=== PATIENT | male | born 1975 | race Caucasian/White ===

== ENCOUNTER 2020-01-21 11:56 | Emergency (ER) | payer MEDICAID ==
[~2020-01-21] VITALS: Ht 154.9 cm; Wt 62.1 kg
[2020-01-21 12:04] VITALS: Ht 154.9 cm; Wt 62.1 kg
[2020-01-21 13:33] LABS: BASOPHIL % 0.7 % (0-2)
[2020-01-21 13:34] LABS: CALCIUM 8.6 mg/dL (8.5-10.1); CARBON DIOXIDE 25.9 mmol/L (21-32); CHLORIDE SERUM 101 mmol/L (98-107); CREATININE SERUM 0.6 mg/dL (0.7-1.3); GFR1 > 60 mL/min; GLUCOSE SERUM 115 mg/dL (74-106); POTASSIUM SERUM 3.4 mmol/L (3.5-5.1); SODIUM SERUM 139 mmol/L (136-145)
[2020-01-21 13:35] LABS: PLATELET COUNT 119 x10^3mcL (130-400)
[2020-01-21 13:38] LABS: ALBUMIN 4.2 g/dL (3.4-5.0); ALKALINE PHOSPHATASE 69 U/L (46-116); ALT/SGPT 67 U/L (16-63); AST/SGOT 72 U/L (15-37); BILIRUBIN TOTAL 0.5 mg/dL (0.20-1.00); TOTAL PROTEIN, SERUM 7.9 g/dL (6.4-8.2)
[2020-01-21 14:17] VITALS: BP 131/89
== END 2020-01-21 14:17 | disposition home or self-care (01) ==
LOC: ED 11:56
PROVIDERS: Emergency Medicine
DX: R04.0 Epistaxis (principal); R79.89 Other specified abnormal findings of blood chemistry
CPT/HCPCS: 36415